=== PATIENT | female | born 1995 | race Caucasian/White ===

== ENCOUNTER 2018-04-09 03:53 | Emergency (ER) | payer OTHER ==
[~2018-04-09] VITALS: Ht 167.6 cm; Wt 59.9 kg
--- NOTE | 2018-04-09 04:25 | NUR ---
Pt ambulated in ER with steady gait and c/o anxiety/light headedness after going to a concert and taking 4 different doses of MDMA. Pt states that after the 4th dose she began to feel anxious and thought she was having some hallucinations. Pt denies palpitations, CP and SOB. Safe environment implemeneted. Friend at bedside
[2018-04-09] MEDS ORDERED: SERT25TA PO (04:26)
[2018-04-09] MEDS ORDERED: AMIT10TA32 PO (04:28)
[2018-04-09] MEDS ORDERED: BUPR100T4 PO (04:29)
[2018-04-09] MEDS ORDERED: LORAZEPAM 1 MG TABLET ONE (04:41)
[2018-04-09] MEDS ORDERED: LORAZEPAM 0.5 MG TABLET PO ONE (04:45)
--- NOTE | 2018-04-09 05:04 | NUR ---
Patient discharged to home in stable conditon. Written and verbal after care instructions given. Patient verbalizes understanding of instructions.
[2018-04-09 05:06] VITALS: BP 134/84
== END 2018-04-09 05:04 | disposition home or self-care (01) ==
LOC: ER 03:55
DX: F41.9 Anxiety disorder, unspecified (principal); Z79.899 Other long term (current) drug therapy
CPT/HCPCS: A4663